=== PATIENT | female | born 1980 | race Caucasian/White ===

== ENCOUNTER 2017-01-10 23:52 | Observation (INO) | payer BC ==
[~2017-01-10 23:52] MED LIST: ONDANSETRON 4 MG/2 ML VIAL IVP PRN
[2017-01-11] MEDS ORDERED: FAMOTIDINE 20 MG/NACL 50 ML IV ONE (00:30)
[2017-01-11 00:57] LABS: % IMMATURE GRANULYOCYTES 1.8 % (0.0-1.1); ABSOLUTE IMMATURE GRANULOCYTES 0.21 10^3/uL (0.00-0.10); ADD DIFF? NO; ADD MORPH? NO; ADD SCAN? NO; ATYPICAL LYMPHOCYTE FLAG 10 (0-99); FRAGMENT RBC FLAG 0 (0-99); HEMATOCRIT 35.8 % (38.0-47.0); LEFT SHIFT FLG 10 (0-99); LIPEMIA HEMOLYSIS FLAG 80 (0-99); MEAN CELL HEMOGLOBIN 29.9 pg (27.9-34.1); MEAN CELL HEMOGLOBIN CONCENTR. 33.5 g/dL (32.4-36.7); MEAN CELL VOLUME 89.3 fL (81.5-99.8); MEAN PLATELET VOLUME 8.9 fL (8.7-11.7); PLATELET CLUMPS FLAG 10 (0-99); PLATELET COUNT 149 10^3/uL (150-400); RED BLOOD CELL COUNT 4.01 10^6/uL (4.18-5.33); RED CELL DISTRIBUTION WIDTH 11.8 % (11.5-15.2)
[2017-01-11 01:07] LABS: ALANINE AMINOTRANSFERASE 28 IU/L (9-52); AMYLASE 87 IU/L (30-110); ASPARTATE AMINOTRANSFERASE 26 IU/L (14-46); BILIRUBIN,TOTAL 0.3 mg/dL (0.1-1.4); BILIRUBIN-CONJUGATED 0.2 mg/dL (0.0-0.5); BILIRUBIN-UNCONJUGATED 0.1 mg/dL (0.0-1.1); CREATININE 0.4 mg/dL (0.6-1.0); GLOMERULAR FILTRATION RATE > 60; LACTATE DEHYDROGENASE 416 IU/L (313-618); URIC ACID 1.8 mg/dL (2.5-6.8)
== END 2017-01-11 06:20 | disposition home or self-care (01) ==
LOC: FLD 23:52
PROVIDERS: ADMIT Obstetrics & Gynecology; ATTEND Obstetrics & Gynecology
DX: O21.0 Mild hyperemesis gravidarum (principal)
CPT/HCPCS: J2405

== ENCOUNTER 2017-03-26 05:34 | Inpatient (IN) | payer BC ==
--- NOTE | 2017-03-25 16:48 | GHP ---
[f rep st] PREOP HISTORY AND PHYSICAL DATE OF ADMISSION: 03/26/2017 INDICATION FOR ADMISSION: The patient is a 36-year-old G4, P1, A2 at 39+ weeks ' gestation with an estimated due date of 03/29/2017, who has had a prior C- section and has been hoping for a trial of labor; however, has had no spontaneous onset of labor. She now requests a repeat section with bilateral salpingectomies. The patient had a complicated labor course last time ; at which point, she was in HELLP syndrome with elevated liver functions and low platelets with hypertension and had magnesium for the labor. She arrested in labor and needed the primary . The patient does not want to go past her due date with increasing risk of repeating the preeclampsia. The patient has been advised as to the risks and benefits of repeat section as well as bilateral salpingectomy, and the consent forms have been signed. The patient desired tubal ligation and was advised that a salpingectomy will reduce potential cancer risk, and she desires a salpingectomy if it can be performed. The patient understands this is 100% effective, and the patient is absolutely sure they do not want another . The patient has been having good movement with off-and-on Whitley Raza contraction but no leakage of fluid or bleeding. CARE: The patient has been followed by [facility] since 8 weeks' gestation. She had baseline PIH labs performed that were normal and a baseline 24-hour urine that was slightly elevated at 426 mg. Her platelet level was 198,000. The patient's 20-week anatomy ultrasound revealed estimated weight at the 84th percentile with a humerus greater than the 95th percentile. There were also bilateral choroid plexus cysts. The patient declined a level 2 ultrasound. A followup ultrasound was performed at 28 weeks ; at which time, the estimated weight was the 92nd percentile, and there was polyhydramnios at 22 cm. There was a central cord insertion and a normal anterior placenta. The patient had issues with left lower quadrant pain; however, there was no obvious etiology other than possible round ligament pain, and it did resolve spontaneously. The patient had a followup growth ultrasound at 35 weeks that revealed 98th percentile of growth. The choroid plexus cysts had resolved. As the baby was already estimated at 8 pounds 1 ounce at 35 weeks , the patient was counseled that it was highly unlikely that she would have a successful . The patient did still want to try if labor began spontaneously , which it has not. LABS: Maternal blood type A positive with negative antibody screen. RPR nonreactive. Rubella immune. Hepatitis B surface antigen negative. HIV negative. TSH was normal. Urinalysis and culture were negative. Pap smear negative. Gonorrhea and chlamydia were negative. Verifi testing was negative. MSAFP was negative. 1-hour Glucola was normal. Hematocrit began borderline at 37 and dropped to 35%, and the patient was initiated on iron. It showed recovery back up to 38% at 35 weeks. GBS culture was negative. PAST MEDICAL HISTORY: The patient has had depression after her last. Also there was the HELLP syndrome noted in labor during the past . PAST SURGICAL HISTORY: section in 2013, a D and C in 2015, odontectomy in high school. PAST OBSTETRIC HISTORY: In February 2014, a male at 7 pounds 4 ounces. After 48 hours of labor, a section with an epidural due to arrest of dilation. The patient was hypertensive with HELLP syndrome and on magnesium through the labor. In January 2016, patient had a spontaneous first trimester miscarriage. In April 2016, a missed AB which patient attempted to pass with Cytotec; however , then needed a D and C. ALLERGIES: The patient has no known drug allergies. CURRENT MEDICATIONS: Only vitamins with iron additionally. 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 She lives with her and their son. The patient is a nonsmoker. No alcohol or drug use. PHYSICAL EXAM: GENERAL: Upon admission, the patient has been doing well with irregular contractions. VITAL SIGNS: She has been clinically afebrile. Most recent blood pressure 110/66. Weight 171 pounds. Urine negative for protein and glucose. Recent PIH symptoms, and the patient had laboratory done which revealed platelets of 140,000 with normal PIH labs. Uric acid was 2.7. LUNGS: Clear to auscultation bilaterally. CARDIOVASCULAR: Regular rate and rhythm. heart tone monitoring revealed a reactive NST at 39 weeks. Fundal height showing LGA. PELVIC: Revealed the cervix was fingertip dilated, thick, high, and posterior. EXTREMITIES: Nontender. No edema. ASSESSMENT: Intrauterine at 39+ weeks, for repeat section with no signs of labor and a history of a prior section. History of hemolysis, elevated liver enzymes, low platelets syndrome with her first. GBS negative. History of depression. PLAN: Repeat section on 03/26. The patient also desires bilateral salpingectomy for undesired fertility. Consent forms have been signed. /[id number]/MODL MTDD
[2017-03-26] MEDS ORDERED: LR 500 ML IV ONE (05:40)
[2017-03-26] MEDS ORDERED: CITRIC ACID/SODIUM CITRATE 30 ML UDCUP PO ONE (05:40)
[2017-03-26] MEDS ORDERED: ceFAZolin 2 GM/DEXTROSE 100 ML IV ONE (05:40)
[2017-03-26] MEDS ORDERED: LR 1,000 ML IV SCH (06:00)
[2017-03-26 06:18] LABS: % IMMATURE GRANULYOCYTES 0.8 % (0.0-1.1); ABSOLUTE IMMATURE GRANULOCYTES 0.07 10^3/uL (0.00-0.10); ADD DIFF? NO; ADD MORPH? NO; ADD SCAN? NO; ATYPICAL LYMPHOCYTE FLAG 10 (0-99); FRAGMENT RBC FLAG 0 (0-99); HEMATOCRIT 38.7 % (38.0-47.0); HEMOGLOBIN 13.1 g/dL (12.6-16.3); LEFT SHIFT FLG 0 (0-99); LIPEMIA HEMOLYSIS FLAG 90 (0-99); MEAN CELL HEMOGLOBIN 30.4 pg (27.9-34.1); MEAN CELL HEMOGLOBIN CONCENTR. 33.9 g/dL (32.4-36.7); MEAN CELL VOLUME 89.8 fL (81.5-99.8); MEAN PLATELET VOLUME 9.8 fL (8.7-11.7); PLATELET CLUMPS FLAG 0 (0-99); PLATELET COUNT 151 10^3/uL (150-400); RED BLOOD CELL COUNT 4.31 10^6/uL (4.18-5.33); RED CELL DISTRIBUTION WIDTH 11.9 % (11.5-15.2)
[2017-03-26] MEDS ORDERED: FAMOTIDINE 20 MG/NACL 50 ML IV ONE (07:15)
[2017-03-26] MEDS ORDERED: FAMOTIDINE 20 MG/NACL/50 ML BAG IV ONE (07:22)
[2017-03-26] MEDS ORDERED: morphINE PF 5 MG/10 ML INJ ONE (07:27)
[2017-03-26] MEDS ORDERED: fentaNYL 100 MCG/2 ML INJ ONE (07:27)
[2017-03-26] MEDS ORDERED: METOCLOPRAMIDE 10 MG/2 ML VIAL IVP PRN (08:52)
[2017-03-26] MEDS ORDERED: ONDANSETRON 4 MG/2 ML VIAL IVP PRN (08:52)
[2017-03-26] MEDS ORDERED: NALOXONE HCL 0.4 MG/ML INJ IVP PRN (08:52)
--- NOTE | 2017-03-26 08:52 | PREANESOB ---
Obstetric Pre-Anesthesia Info - General Info Proposed Procedure: C/S NPO Start Time: 03:00 : 4 Para: 1 WBD: 39 - Info Status: Full Term - Labor Status Section History: Repeat (s/p primary C/S 2013) Indications for Current Section: Elective/Repeat Labor Epidural: No Anesthesia Allergies/Adverse Reactions: Allergy/AdvReac Type Severity Reaction Status Date / Time No Known Allergies Allergy Unverified 02/11/14 20:56 Home Medications: Medication Instructions Recorded 03/26/17 Visit Medications: Generic Name Dose Route Start Last Admin Trade Name Freq PRN Reason Stop Dose Admin Lactated Ringer's 1,000 mls @ 125 mls/hr 03/26/17 06:00 Lr IV 09/22/17 05:59 CONT AIDE Discontinued Medications Generic Name Dose Route Start Last Admin Trade Name Freq PRN Reason Stop Dose Admin Citric Acid/Sodium Citrate 30 ml 03/26/17 05:40 03/26/17 07:20 Bicitra PO 03/26/17 05:41 30 ml ONCALL ONE Administration Famotidine/Sodium Chloride Confirm 03/26/17 07:22 Pepcid 20 Mg (Premix) Administered 03/26/17 07:23 Dose 20 mg IV .STK-MED ONE Fentanyl Confirm 03/26/17 07:27 Sublimaze Administered 03/26/17 07:28 Dose 100 mcg .ROUTE .STK-MED ONE Cefazolin Sodium/Dextrose 100 mls @ 200 mls/hr 03/26/17 05:40 03/26/17 07:50 Ancef 2 Gm (Premix) IV 03/26/17 06:09 100 mls ONCALL ONE Administration Protocol Lactated Ringer's 500 mls @ 0 mls/hr 03/26/17 05:40 03/26/17 08:48 Lr IV 03/26/17 05:41 500 mls ONCE ONE Administration As Directed Famotidine/Sodium Chloride 50 mls @ 200 mls/hr 03/26/17 07:15 03/26/17 07:20 Pepcid 20 Mg (Premix) IV 03/26/17 07:29 50 mls ONCE ONE Administration Morphine Sulfate Confirm 03/26/17 07:27 Morphine Pf 5 Mg/10 Ml Administered 03/26/17 07:28 Dose 5 mg .ROUTE .STK-MED ONE - Anesthesia History Response to Local Anesthetics: Normal Anesthesia & Operative History: No Prior Problems Family Anesthesia History: Negative - Social History Substance Use/Abuse: Denies - Focused Exam Height/Weight (Nursing): Height 162.56 cm Weight 77.564 kg Respiratory: lungs clear Cardiovascular: normal peripheral pulses ASA Status: II Labs: 03/26/17 06:00 Patient ABO/Rh A POSITIVE 03/26/17 06:00 - Plan Consent Signed and on Chart: Yes
--- NOTE | 2017-03-26 09:52 | POSTANESTH ---
Post Anesthetic Evaluation Cardiovascular Status: Normal, Stable Respiratory Status: Normal, Stable Level of Consciousness/Mental Status: Can Participate in Eval Pain Control: Adequate, Prn Tx Ordered Nausea/Vomiting Control: Adequate, Prn Tx Ordered Complications Possibly Related to Anesthesia: None Noted
[2017-03-26] MEDS ORDERED: HYDROCODONE/APAP 5/325 TAB PO PRN (10:01)
[2017-03-26] MEDS ORDERED: LACTULOSE 20 GM/30 ML UDCUP PO PRN (10:03)
[2017-03-26] MEDS ORDERED: BISACODYL 10 MG SUPP PR PRN (10:03)
[2017-03-26] MEDS ORDERED: MAGNESIUM HYDROXIDE 30 ML UDCUP PO PRN (10:03)
[2017-03-26] MEDS ORDERED: POLYETHYLENE GLYCOL 3350 17 GM PKT PO PRN (10:03)
--- NOTE | 2017-03-26 10:10 | OBDEL ---
Info Type: Repeat GBS+: No Number of Antibiotic Doses Given: 1 (preop) Indications for Delivery: Elective (scheduled RCS - no labor) Vaginal Delivery - Labor and Delivery Onset of Contractions Date: 03/26/17 Onset of Contractions Time: 00:00 Operative Report - Delivery Pre-op Diagnoses: IUP at 39+wks, PCS, no labor, undesired fertility Post-op Diagnoses: same, delivered Nulliparous Prior to Delivery: No Presentation at Delivery: Vertex Procedure: Scheduled, Low Transverse, Other (Specify) (bilateral salpingectomies ) Surgeon: Marylou Guidry Travel Ot: Alesia Padilla () Anesthesiologist: Tommie Singh Draw Fire Operator/SALES REPRESENTATIVE ELECTRIC SERVICE: Bertha Thakkar (SALES REPRESENTATIVE ELECTRIC SERVICE) L&D Analgesia/Anesthesia Type: Spinal (with Duramorph) Findings: uterus, tubes and ovaries normal. normal fascial scar thickness. bladder flap developed well. clear fluid with amniotomy. Double layer closure. Good uterine tone immediately. BS done without any problems. Lawson's closed with 3 -0 and subq with 4-0 vicryl. mastosol with steris. clear UOP after surgery. Specimen(s)/Path: Fallopian Tube(s) (bilateral) IV Fluid (ml): 2,500 EBL: 800 [place] Data [facility] Delivery Date: 03/26/17 Delivery Time: 08:35 CARA: 03/29/17 Gestational Age: 39 week(s) and 4 day(s) Sex of Infant: Male (Jason) Weight (gm): 3798 g (8#6) Score (1 Min): 9 Score (5 Min): 9 ICD10 Worksheet Patient Problems: Problems Problem Status Onset Status post bilateral salpingectomy Acute Status post repeat low transverse section Acute
[2017-03-26] MEDS ORDERED: KETOROLAC 30 MG/1 ML SDV ONE (10:36)
[2017-03-26] MEDS: KETOROLAC 30 MG/1 ML SDV IVP SCH ×3 (10:52→22:51)
[2017-03-26] MEDS ORDERED: OXYTOCIN/RINGERS LACTATE 20 UNIT/1,000 ML BAG IV ONE (11:19)
[2017-03-26] MEDS: SENNOSIDES/DOCUSATE SODIUM TAB PO SCH (22:51)
[2017-03-27] MEDS: KETOROLAC 30 MG/1 ML SDV IVP SCH (05:08)
--- NOTE | 2017-03-27 11:09 | OBPP ---
Progress Note Assessment/Plan: Assessment: POD 1 s/p RCS, BS mild anemia Plan: routine care, iron daily 03/27/17 11:06 Subjective: Doing very well. Pain is well controlled with Toradol and will start [place] in a bit. Amb well. urinating fine. baby has been BF well. Up a lot of night. no nausea - kalpesh reg diet well. Objective: 03/27/17 05:15 Patient ABO/Rh A POSITIVE 03/26/17 06:00 Temp Pulse Resp BP Pulse Ox 36.1 C 66 18 99/67 L 94 03/27/17 09:05 03/27/17 09:05 03/27/17 09:05 03/27/17 09:05 03/27/17 09:05 Uterine Position/Fundal Height: Umbilicus -1 Uterine Tone: Firm Physical Exam - Physical Exam General Appearance: WD/WN Abdomen: soft, other (bandage with old drainage from yesterday - no new) Extremities: non-tender, pedal edema (minimal) Skin: warm/dry Neuro/Psych: normal mood/affect
[2017-03-27] MEDS: IBUPROFEN 600 MG TAB PO SCH ×2 (12:37→18:11)
[2017-03-27] MEDS: IRON POLYSAC/IRON HEME 28 MG TAB PO SCH ×2 (12:51→21:29)
[2017-03-27] MEDS: SENNOSIDES/DOCUSATE SODIUM TAB PO SCH ×2 (12:52→21:31)
[2017-03-28] MEDS: IBUPROFEN 600 MG TAB PO SCH ×3 (00:44→11:57)
[2017-03-28 00:54] VITALS: RESP 16; O2SAT 94
[2017-03-28] MEDS: IRON POLYSAC/IRON HEME 28 MG TAB PO SCH (09:02)
[2017-03-28 09:04] VITALS: BP 120/90; PULSE 86; TEMP 98.5
--- NOTE | 2017-03-28 11:39 | OBPP ---
Progress Note Assessment/Plan: Assessment: POD 2 s/p RCS, BS mild anemia Plan: routine care, iron daily. Pt desires D/C 03/27/17 11:06 03/28/17 11:35 Subjective: Pt doing well. BF going well and pt got some sleep last noc. Latching is good and pt feels milk has started to come in. Pain controlled with ibu only. Feels more sore with bladder filling but not dysuria. Bld is light. urinating fine. Objective: 03/27/17 05:15 Patient ABO/Rh A POSITIVE 03/26/17 06:00 Temp Pulse Resp BP Pulse Ox 36.9 C 86 16 120/90 H 94 03/28/17 09:03 03/28/17 09:03 03/28/17 09:03 03/28/17 09:03 03/28/17 00:45 Uterine Position/Fundal Height: At Umbilicus Uterine Tone: Firm Physical Exam - Physical Exam General Appearance: WD/WN Abdomen: non-tender (approp post op tenderness), soft, other (incision CDI) Extremities: non-tender, pedal edema (mild) Skin: warm/dry Neuro/Psych: normal mood/affect
[2017-03-28] MEDS: SENNOSIDES/DOCUSATE SODIUM TAB PO SCH (11:46)
--- NOTE | 2017-03-28 11:46 | OBGCSDC ---
General Delivery Information - General Info : 4 Para: 2 Abortions: 2 Delivery Physician/CNM: Marylou Guidry Plastic Extruding Machine Operator: Alesia Padilla () Labs: Patient ABO/Rh A POSITIVE 03/26/17 06:00 Hct 34.4 % (38.0-47.0) L 03/27/17 05:15 Vaginal - Diagnosis Presentation at Delivery: Vertex - Operations/Procedures L&D Analgesia/Anesthesia Type: Spinal - Delivery Number of Prior Sections: 1 Indications for Prior Section: Arrest of Dilation, Other (Specify) ( HELLP syndrome) Indications for Current Section: Elective/Repeat Type: Repeat Surgical Procedures: Scheduled, Low Transverse, Other (Specify) (bilateral salpingectomies) Intra-op Complications: None EBL: 800 L&D Analgesia/Anesthesia Type: Spinal, Other (Specify) (with duramorph) - Hospital Course Antepartum: baseline PIH labs normal but proteinuria slightly elevated. U/S showing LGA with CPCs that resolved. Intrapartum: Normal C/S and BS : normal post op course. pt desires D/C on POD 2. post op hct 34%. only using [facility] [place] Data [facility] Delivery Date: 03/26/17 Delivery Time: 08:35 CARA: 03/29/17 Gestational Age: 39 week(s) and 6 day(s) Sex of : Male (Jason) [place] Weight (gm): 3798 g (8#6) Score (1 Min): 9 Score (5 Min): 9 Discharge Information - Discharge Information Discharge Medications: Iron, Hydrocodone (script given), Ibuprofen, Vitamins Condition: Good Instruction/Follow Up: See Instruction Sheet, Two Weeks, Six Weeks (and 4 wks with therapist) Discharge Physician/CNM: Marylou Guidry
== END 2017-03-28 12:00 | disposition home or self-care (01) | DRG 766 ==
LOC: FLD 05:34 → FOB 11:57
PROVIDERS: ADMIT Obstetrics & Gynecology; ATTEND Obstetrics & Gynecology
PROC: 10D00Z1 Extraction of Products of Conception, Low, Open Approach (ICD-10-PCS; principal; 2017-03-26)
PROC: 0UT70ZZ Resection of Bilateral Fallopian Tubes, Open Approach (ICD-10-PCS; principal; 2017-03-26)
DX: O34.219 Maternal care for unspecified type scar from previous cesarean delivery (principal); Z30.2 Encounter for sterilization; Z3A.38 38 weeks gestation of pregnancy; Z37.0 Single live birth; O99.03 Anemia complicating the puerperium; D64.9 Anemia, unspecified
CPT/HCPCS: J0690; J1885; J2274; J2590; J3010